=== PATIENT | female | born 1985 | race Caucasian/White ===

== ENCOUNTER 2020-05-10 13:23 | Outpatient (RCR) | payer OTHER, SELFPAY | END 2020-07-16 23:59 | LOC: IMMUN 13:23 | PROVIDERS: PCP Family Medicine; Referring Provider Family Medicine; Visit Provider Family Medicine | DX: Z23 Encounter for immunization (principal) | CPT/HCPCS: 0001A; 0002A; 91300 ==

== ENCOUNTER 2020-09-03 11:24 | Inpatient (IN) | payer OTHER, SELFPAY ==
[2020-09-03 11:25] VITALS: BP 112/86; PULSE 72; RESP 16; TEMP 36.7; O2SAT 99; BMI 25.0
[2020-09-03 11:54] LABS: Mucous, Urine 0 SEEN /hpf (<or=2+)
[2020-09-03 11:55] LABS: Color, Urine Yellow (Yellow); Glucose, Dipstick Normal (Normal); Ketone-Dipstick Negative (Negative); Leukocyte Esterase-Dipstick Negative /ul (Negative); Nitrite-Dipstick Negative (Negative); Occult Blood-Urine 250 /ul (Negative); Protein-Dipstick 30 mg/dl (Negative); Specific Gravity, Urine 1.015 (1.002-1.030); Urine Bilirubin Dipstick Negative (Negative); Urine Clarity Cloudy (Clear); Urine Urobilinogen Normal (Normal); Urine pH 6.5 (5.0 - 8.0)
[2020-09-03 11:56] LABS: Internal QC Validated? YES +Cl - CLEAR BKGD; Pregnancy, Urine Negative Negative
--- NOTE | 2020-09-03 11:57 | US_ITS ---
HISTORY:right pelvic pain. TECHNIQUE: Transvaginal pelvic ultrasound was performed with grayscale, spectral, and color Doppler flow evaluation. # of images incl. paperwork: 54. COMPARISON: None. FINDINGS: UTERUS: 7.6 x 4.6 x 6.3 cm and retroverted. ENDOMETRIUM: 4 mm in thickness. RIGHT OVARY: 3.2 x 2.2 x 1.7 cm. No adnexal masses. Vascular flow present. LEFT OVARY: 2.6 x 1.7 x 2.4 cm. No adnexal masses. Vascular flow present. FREE FLUID: No significant free fluid in the pelvis. US/Transvaginal Non- IMPRESSION: Unremarkable examination of the uterus and ovaries. at 1253 Reported and signed by: Alivia Crisostomo MD Electronically Signed: Alivia Crisostomo MD at 12:51 EDT Tel , Service support ,
--- NOTE | 2020-09-03 11:59 | EX.ED.DYSGE1 ---
HPI History of Present Illness Chief Complaint: Abd Pain Narrative Narrative: 34-year-old female presenting with right pelvic pain. She states this started this morning when she woke up. Its been present for about 5 hours. She denies urinary complaints. She states she is currently on the second day of her menstrual cycle which is on time and normal. Patient states she is on control for acne rosacea and her uses condoms and she believes it is a low likelihood that she would be . Patient has no history of kidney stones. [facility] Medical History Kidney stone Rosacea Home Medications biotin 1 mg PO DAILY 09/03/20 [History Last Taken Unknown] garlic 1 mg PO DAILY 09/03/20 [History Last Taken 09/03/20] hydroxyzine pamoate 25 mg PO QHS PRN 09/03/20 [History Last Taken Unknown] multivitamin 1 tab PO DAILY 09/03/20 [History Last Taken Unknown] norgestimate-ethinyl estradiol 1 tab PO QHS 09/03/20 [History Last Taken 09/02/20] Allergy/AdvReac Type Severity Reaction Status Date / Time No Known Allergies Allergy Verified 09/03/20 11:29 Surgical History H/O adenoidectomy Social History Smoking Status: Never smoker ROS ROS ED Constitutional Constitutional ED: Denies chills or fever(s) Eyes Eyes: Denies blurry vision or diplopia ENT ENT ED: Denies rhinorrhea or sore throat Cardiovascular Cardiovascular: Denies chest pain or palpitations Respiratory/Chest Respiratory/Chest: Denies cough or dyspnea Gastrointestinal Gastrointestinal: Reports abdominal pain, nausea and vomiting Genitourinary Genitourinary ED: Denies dysuria or hematuria Musculoskeletal Musculoskeletal: Denies arthralgias, back pain or myalgias Integumentary Denies abscess or rash Neurologic Neurologic: Denies headache(s) or paresthesias Psychiatric Psychiatric: Denies anxiety or depression EXAM Physical Exam Const Vital Signs: 09/03/20 11:25 09/03/20 13:35 09/03/20 14:37 Temperature 98.0 F 97.3 F L Temperature Source Oral Temporal Pulse Rate 72 52 L 66 Respiratory Rate 16 16 16 Blood Pressure 112/86 H 116/84 H Blood Pressure Mean 94 94 Pulse Ox 99 99 100 Oxygen Delivery Method Room Air Room Air Room Air Positive well nourished General Appearance ED: NAD HEENT Reports moist mucous membranes Negative for trauma Eyes PERRL and EOMs intact bilaterally Resp normal respiratory effort and clear to auscultation bilaterally Cardio regular rate and regular rhythm Back/Spine no CVA tenderness Neuro oriented x3 and CN's II-XII intact bilaterally Sensorium / Orientation: alert Psych mental status grossly normal Skin no rashes or lesions noted and no wounds MDM MDM MDM Narrative Medical decision making narrative: Patient presenting with right lower quadrant/pelvic pain which began abruptly. I did check a urinalysis and hCG which are negative. Patient had transvaginal ultrasound initially which was negative. Patient's urinalysis does show blood in this however she is currently on her menstrual cycle. I did obtain CT of the abdomen pelvis without contrast which shows a 6 mm proximal ureteral stone on the right with hydronephrosis. Patient had been given morphine, Dilaudid, fentanyl and still at 6-7 pain. Patient was discussed with Dr. Winters who accepted admission. Impression: 1. 6 mm proximal right ureteral stone 2. Hematuria 3. Intractable flank pain Lab Data Attestation: I reviewed the patient's lab results. Labs: Laboratory Results - last 24 hr 09/03/20 09/03/20 09/03/20 11:35 11:35 11:50 WBC 7.1 RBC 4.59 Hgb 13.3 Hct 41.0 MCV 89.3 MCH 29.0 MCHC 32.4 RDW Std Deviation 41.8 RDW Coeff of Julee 12.7 Plt Count 239 MPV 10.1 Immature Gran % (Auto) 0.100 Neut % (Auto) 78.0 H Lymph % (Auto) 16.1 L [place] % (Auto) 4.7 Eos % (Auto) 0.7 Baso % (Auto) 0.4 Absolute Neuts (auto) 5.5 Absolute Lymphs (auto) 1.14 Nucleated RBC % 0 Sodium 137 Potassium 4.0 Chloride 105 Carbon Dioxide 25.0 Anion Gap 7 BUN 10 Creatinine 1.05 H Estim Creat Clear Calc 76.16 Est GFR (MDRD) Af Amer 77 Est GFR (MDRD) Non-Af 63 BUN/Creatinine Ratio 9.5 L Glucose 107 H Calcium 9.1 Urine Color Yellow Urine Clarity Cloudy Urine pH 6.5 Ur Specific [place] 1.015 Urine Protein 30 H Urine Glucose (UA) Normal Urine Ketones Negative Urine Occult Blood 250 H Urine Nitrite Negative Urine Bilirubin Negative Urine Urobilinogen Normal Ur Leukocyte Esterase Negative Urine RBC 50-100 SEEN Urine WBC 0-5 SEEN Ur Squamous Epith Cells 0-5 SEEN Urine Bacteria RARE Urine Mucus 0 SEEN Urine Test Negative Radiography Diagnostic Testing: Radiology Impression Transvaginal US 09/03/20 11:57 IMPRESSION: Unremarkable examination of the uterus and ovaries. at 1253 Reported and signed by: Alivia Crisostomo MD Electronically Signed: Alivia Crisostomo MD at 12:51 EDT Tel , Service support , Abdomen/Pelvis CT 09/03/20 12:57 IMPRESSION: Moderate right hydronephrosis secondary to a 6 mm proximal ureteral calculus. Left nephrolithiasis. Colonic diverticulosis without acute diverticulitis. Individualized dose optimization techniques were used for this CT. at 1334 Reported and signed by: Alivia Crisostomo MD Electronically Signed: Alivia Crisostomo MD at 13:33 EDT Tel , Service support , Discharge Plan Disposition Disposition: Acute Care Hospital [facility] Discharge Date/Time: 09/03/20 14:40
[2020-09-03 12:01] LABS: Red Blood Cells-Urine 50-100 SEEN /hpf (0-5)
[2020-09-03 12:03] LABS: Bacteria RARE /hpf (None Seen); Squamous Epithelial Cells - UA 0-5 SEEN /hpf (5-10); White Blood Cells 0-5 SEEN /hpf (0-5)
[2020-09-03] MEDS: 0.9% Normal Saline 1,000 ML 1000 ML IV (12:08)
[2020-09-03] MEDS: Morphine 4 MG/ML Syringe IV (12:09)
[2020-09-03] MEDS: Ondansetron 4 MG/2 ML Vial IV (12:09)
[2020-09-03 12:13] LABS: Absolute Lymphocyte Count 1.14 X10^3/uL (0.83-4.51); Absolute Neutrophil Count 5.5 X10^3/uL (2.0-7.7); Basophil# 0.03 X10^3/uL; Basophil% 0.4 % (0-1); Eosinophil# 0.05 X10^3/uL; Eosinophils% 0.7 % (0-5); Hemoglobin 13.3 g/dL (12.0-15.0); Lymphocyte # 1.14 X10^3/ul (0.83-4.51); Lymphocyte % 16.1 % (19-41); Mean Corp Hgb Conc 32.4 g/dL (32-36); Mean Corpuscular Volume 89.3 fL (81-99); Mean Platelet Vol. 10.1 fl (6.2-12.0); Monocyte# 0.33 X10^3/uL; Monocyte% 4.7 % (0-10); NRBC Flagged by Analyzer 0 % (0-5); Neutrophil # 5.52 X10^3/uL (2.7-7.7); Platelet Count 239 K/mm3 (150-450); RBC Distribution Width CV 12.7 % (11.6-14.6); RBC Distribution Width SD 41.8 fl (35.1-43.9); Red Blood Count 4.59 M/mm3 (4.2-5.4); White Blood Count 7.1 K/mm3 (4.4-11.0)
[2020-09-03 12:23] LABS: Anion Gap 7 (5-15); BUN 10 mg/dL (7-18); BUN/Creat Ratio 9.5 RATIO (10-20); Calcium,Total 9.1 mg/dL (8.5-10.1); Chloride 105 mmol/L (98-107); Creatinine, Serum 1.05 mg/dL (0.55-1.02); EST Glomerular Filtration Rate 63 mL/min (>60); Est Glom Filt Rate - Afr Amer 77 mL/min (>60); Estimated Creatinine Clearance 76.16 ml/min; Glucose 107 mg/dL (74-106); Sodium Level 137 mmol/L (136-145)
--- NOTE | 2020-09-03 12:57 | CT_ITS ---
HISTORY: Right flank pain. TECHNIQUE: Helically acquired images were obtained of the abdomen and pelvis without oral or IV contrast as per renal stone protocol. A radiation dose optimization technique was used for this scan. # of images incl. paperwork: 460. COMPARISON: None. FINDINGS: LUNG BASES: Calcified right lower lobe granuloma. BOWEL: Bowel including appendix nondilated. Colonic diverticulosis without focal pericolonic inflammatory change observed. PERITONEUM: No significant ascites. LIVER/BILIARY TRACT: Unremarkable liver.Gallbladder present. SPLEEN: Non-enlarged. PANCREAS: No peripancreatic inflammation. KIDNEYS AND URETERS: Moderate right hydronephrosis and mild perinephric stranding secondary to a 6 mm proximal ureteral calculus. 2 mm left lower pole calculi without hydronephrosis. ADRENAL GLANDS: Non-enlarged. VESSELS: No abdominal aortic aneurysm. PELVIC ORGANS: Retroverted uterus. BONES: Intact. CT/Abdomen/Pelvis without Cont IMPRESSION: Moderate right hydronephrosis secondary to a 6 mm proximal ureteral calculus. Left nephrolithiasis. Colonic diverticulosis without acute diverticulitis. Individualized dose optimization techniques were used for this CT. at 1334 Reported and signed by: Alivia Crisostomo MD Electronically Signed: Alivia Crisostomo MD at 13:33 EDT Tel , Service support ,
[2020-09-03] MEDS: HYDROmorphone 0.5 MG/0.5 ML SYRINGE IV (13:06)
[2020-09-03 13:35] VITALS: PULSE 52; RESP 16; O2SAT 99
[2020-09-03] MEDS: fentaNYL 100 MCG/2 ML Ampul 50 MCG IV (14:22)
[2020-09-03 14:37] VITALS: BP 116/84; PULSE 66; RESP 16; TEMP 36.3; O2SAT 100
--- NOTE | 2020-09-03 14:45 | HP.PCM_ITS ---
HPI - General General Date of Admission: 09/03/20 HPI Narrative YOSHI MIRANDA, is a 34 F who presents to ER with abdominal pain, CT scan done demonstrates a 6mm stone int he right UPJ causing obstruction and hydronephrosis admit for pain control, plan to take to surgery for ureteroscopy laser stone and right stent in am. PFSH Home Medications biotin 1 mg PO DAILY 09/03/20 [History Last Taken Unknown] garlic 1 mg PO DAILY 09/03/20 [History Last Taken 09/03/20] hydroxyzine pamoate 25 mg PO QHS PRN 09/03/20 [History Last Taken Unknown] multivitamin 1 tab PO DAILY 09/03/20 [History Last Taken Unknown] norgestimate-ethinyl estradiol 1 tab PO QHS 09/03/20 [History Last Taken 09/02/20] Allergy/AdvReac Type Severity Reaction Status Date / Time No Known Allergies Allergy Verified 09/03/20 11:29 Social History Smoking Status: Never smoker ROS Constitutional Constitutional: Denies chills, fever(s) or malaise Eyes Eyes: Denies blurry vision or change in vision ENT HEENT: Reports none Cardiovascular Cardiovascular: Denies chest pain or palpitations Respiratory/Chest Respiratory/Chest: Denies cough or shortness of breath with exertion Gastrointestinal Gastrointestinal: Denies abdominal pain, constipation or diarrhea Genitourinary Genitourinary: Reports systems reviewed and no addt'l complaints, except as documented Musculoskeletal Musculoskeletal: Denies back pain, joint stiffness or joint swelling Integumentary Integumentary: Denies dry skin, jaundice, lesions or rash Neurologic Neurologic: Denies confusion, syncope or weakness Psychiatric Psychiatric: Reports none; Denies anxiety or depression Endocrine Endocrinology: Denies excessive sweating, fatigue or flushing Hematologic/Lymphatic Hematologic/Lymphatic: Denies anemia, easy bleeding or easy bruising Vital Signs Vital Signs Vital Signs: 09/03/20 11:25 09/03/20 13:35 09/03/20 14:37 Temperature 98.0 F 97.3 F L Temperature Source Oral Temporal Pulse Rate 72 52 L 66 Respiratory Rate 16 16 16 Blood Pressure 112/86 H 116/84 H Blood Pressure Mean 94 94 Pulse Ox 99 99 100 Oxygen Delivery Method Room Air Room Air Room Air Weight Weight: 74.843 kg Body Mass Index (BMI) 25.0 Physical Exam Const alert and oriented x3 General Appearance: cooperative HEENT normocephalic, head/scalp atraumatic, EAC's normal and TM's normal bilaterally Eyes PERRL and EOMs intact bilaterally Pupil: sluggish Neck no lymphadenopathy, supple and no JVD General: trachea midline Lymph Lymphatic: no lymphadenopathy noted, lymphedema and lymphadenopathy Resp normal respiratory effort, normal air movement and clear to auscultation bilaterally Cardio regular rate, regular rhythm and peripheral pulses 2+ throughout GI soft to palpation, non-tender and non-distended Extremity normal capillary refill and no clubbing, cyanosis or edema General Extremity: no tenderness to palpation of joints or extremities Skin no rashes or lesions noted General Skin Exam: turgor normal Lesions: no lesions Rashes: no rashes Neuro CN's II-XII intact bilaterally Speech: speech normal Motor Exam: strength 5/5 throughout; Negative for general weakness Psych thought process normal, cooperative and affect normal Appearance: appropriate Results Lab / Micro Data Result Diagrams: 09/03/20 11:35 09/03/20 11:35 Labs: Laboratory Results - last 24 hr 09/03/20 11:35: WBC 7.1, RBC 4.59, Hgb 13.3, Hct 41.0, MCV 89.3, MCH 29.0, MCHC 32.4, RDW Std Deviation 41.8, RDW Coeff of Julee 12.7, Plt Count 239, MPV 10.1, Immature Gran % (Auto) 0.100, Neut % (Auto) 78.0 H, Lymph % (Auto) 16.1 L, [place] % (Auto) 4.7, Eos % (Auto) 0.7, Baso % (Auto) 0.4, Absolute Neuts (auto) 5.5, Absolute Lymphs (auto) 1.14, Nucleated RBC % 0 09/03/20 11:35: Sodium 137, Potassium 4.0, Chloride 105, Carbon Dioxide 25.0, Anion Gap 7, BUN 10, Creatinine 1.05 H, Estim Creat Clear Calc 76.16, Est GFR (MDRD) Af Amer 77, Est GFR (MDRD) Non-Af 63, BUN/Creatinine Ratio 9.5 L, Glucose 107 H, Calcium 9.1 09/03/20 11:50: Urine Color Yellow, Urine Clarity Cloudy, Urine pH 6.5, Ur Sp ecific [place] 1.015, Urine Protein 30 H, Urine Glucose (UA) Normal, Urine Ke tones Negative, Urine Occult Blood 250 H, Urine Nitrite Negative, Urine Bilir ubin Negative, Urine Urobilinogen Normal, Ur Leukocyte Esterase Negative, Urine RBC 50-100 SEEN, Urine WBC 0-5 SEEN, Ur Squamous Epith Cells 0-5 SEEN, Urine Bacteria RARE, Urine Mucus 0 SEEN, Urine Test Negative Radiology Impression Transvaginal US 09/03/20 11:57 IMPRESSION: Unremarkable examination of the uterus and ovaries. at 1253 Reported and signed by: Alivia Crisostomo MD Electronically Signed: Alivia Crisostomo MD at 12:51 EDT Tel , Service support , Abdomen/Pelvis CT 09/03/20 12:57 IMPRESSION: Moderate right hydronephrosis secondary to a 6 mm proximal ureteral calculus. Left nephrolithiasis. Colonic diverticulosis without acute diverticulitis. Individualized dose optimization techniques were used for this CT. at 1334 Reported and signed by: Alivia Crisostomo MD Electronically Signed: Alivia Crisostomo MD at 13:33 EDT Tel , Service support , Assessment & Plan Assessment/Plan (1) Right ureteral calculus: PLAN: NPO at midnight, plan for Surgery tomorrow for right ureteroscopy laser stone and stent.
[2020-09-03 14:48] VITALS: BP 121/78; PULSE 79; RESP 18; TEMP 36.9; O2SAT 100
[2020-09-03 14:52] VITALS: BMI 26.4
[2020-09-03] MEDS: HYDROcodone Bitartrate/Apap 5/325 Tablet PO ×2 (15:10→21:27)
[2020-09-03] MEDS: 0.9% Normal Saline 1,000 ML 125 ML IV ×2 (15:15→21:29)
[2020-09-03] MEDS: 0.9% Saline Lock 10 ML Syringe IV ×2 (15:15→16:58)
[2020-09-03 15:23] VITALS: BMI 26.4
[2020-09-03] MEDS: Ciprofloxacin 400 MG/200 ML BAG 200 MG IV (15:44)
[2020-09-03] MEDS: Ketorolac 15 MG/ML Vial IV (16:58)
[2020-09-03 20:57] VITALS: BP 106/74; PULSE 81; RESP 18; TEMP 36.9; O2SAT 100
[2020-09-03] MEDS: Docusate Sodium 100 MG Capsule 200 MG PO (21:27)
[2020-09-04] VITALS (9 sets, daily range): BP systolic 102–115; BP diastolic 59–75; PULSE 63–90; RESP 14–18; TEMP 36.5–37.3; O2SAT 94–100; BMI 26.4
[2020-09-04] MEDS: Ketorolac 15 MG/ML Vial IV ×2 (02:40→08:42)
[2020-09-04] MEDS: 0.9% Saline Lock 10 ML Syringe IV ×3 (02:40→12:36)
[2020-09-04] MEDS: Ciprofloxacin 400 MG/200 ML BAG 200 MG IV (02:58)
[2020-09-04] MEDS: 0.9% Normal Saline 1,000 ML 125 ML IV ×2 (05:28→10:15)
--- NOTE | 2020-09-04 07:14 | PCM.PN.GU ---
Subjective Subjective Admitted for kidney stone Objective Data Objective Data Vital Signs: Vital Signs Temp Pulse Resp BP Pulse Ox 98.3 F 70 18 104/59 L 100 09/04/20 02:42 09/04/20 02:42 09/04/20 02:42 09/04/20 02:42 09/04/20 02:42 Oxygen Delivery Method Room Air Weight: 78.744 kg Body Mass Index (BMI) 26.4 Intake & Output: Intake and Output for Last 24 Hours 09/02/20 09/03/20 09/04/20 23:59 23:59 23:59 Intake Total 2254.17 / 2254.17 1197.92 / 1197.92 Output Total 300 / 300 Balance 2254.17 / 2254.17 897.92 / 897.92 Lab / Micro Data Result Diagrams: 09/03/20 11:35 09/03/20 11:35 Labs: Laboratory Results - last 24 hr 09/03/20 11:35: WBC 7.1, RBC 4.59, Hgb 13.3, Hct 41.0, MCV 89.3, MCH 29.0, MCHC 32.4, RDW Std Deviation 41.8, RDW Coeff of Julee 12.7, Plt Count 239, MPV 10.1, Immature Gran % (Auto) 0.100, Neut % (Auto) 78.0 H, Lymph % (Auto) 16.1 L, [place] % (Auto) 4.7, Eos % (Auto) 0.7, Baso % (Auto) 0.4, Absolute Neuts (auto) 5.5, Absolute Lymphs (auto) 1.14, Nucleated RBC % 0 09/03/20 11:35: Sodium 137, Potassium 4.0, Chloride 105, Carbon Dioxide 25.0, Anion Gap 7, BUN 10, Creatinine 1.05 H, Estim Creat Clear Calc 76.16, Est GFR (MDRD) Af Amer 77, Est GFR (MDRD) Non-Af 63, BUN/Creatinine Ratio 9.5 L, Glucose 107 H, Calcium 9.1 09/03/20 11:50: Urine Color Yellow, Urine Clarity Cloudy, Urine pH 6.5, Ur Specific [place] 1.015, Urine Protein 30 H, Urine Glucose (UA) Normal, Urine Ketones Negative, Urine Occult Blood 250 H, Urine Nitrite Negative, Urine Bilirubin Negative, Urine Urobilinogen Normal, Ur Leukocyte Esterase Negative, Urine RBC 50-100 SEEN, Urine WBC 0-5 SEEN, Ur Squamous Epith Cells 0-5 SEEN, Urine Bacteria RARE, Urine Mucus 0 SEEN, Urine Test Negative Radiography Diagnostic Testing: Radiology Impression Transvaginal US 09/03/20 11:57 IMPRESSION: Unremarkable examination of the uterus and ovaries. at 1253 Reported and signed by: Alivia Crisostomo MD Electronically Signed: Alivia Crisostomo MD at 12:51 EDT Tel , Service support , Abdomen/Pelvis CT 09/03/20 12:57 IMPRESSION: Moderate right hydronephrosis secondary to a 6 mm proximal ureteral calculus. Left nephrolithiasis. Colonic diverticulosis without acute diverticulitis. Individualized dose optimization techniques were used for this CT. at 1334 Reported and signed by: Alivia Crisostomo MD Electronically Signed: Alivia Crisostomo MD at 13:33 EDT Tel , Service support , Physical Exam Const alert and oriented x3 General Appearance: cooperative HEENT normocephalic, head/scalp atraumatic, EAC's normal and TM's normal bilaterally Eyes PERRL and EOMs intact bilaterally Pupil: sluggish Neck no lymphadenopathy, supple and no JVD General: trachea midline Lymph Lymphatic: no lymphadenopathy noted, lymphedema and lymphadenopathy Resp normal respiratory effort, normal air movement and clear to auscultation bilaterally Cardio regular rate, regular rhythm and peripheral pulses 2+ throughout GI soft to palpation, non-tender and non-distended Extremity normal capillary refill and no clubbing, cyanosis or edema General Extremity: no tenderness to palpation of joints or extremities Skin no rashes or lesions noted General Skin Exam: turgor normal Lesions: no lesions Rashes: no rashes Neuro CN's II-XII intact bilaterally Speech: speech normal Motor Exam: strength 5/5 throughout; Negative for general weakness Psych thought process normal, cooperative and affect normal Appearance: appropriate Assessment & Plan Assessment/Plan (1) Right ureteral calculus: PLAN: Plan to proceed with ureteroscopy laser of stone and stent placement today.
--- NOTE | 2020-09-04 09:23 | NURSING ---
0910-PT OFF UNIT VIA BED FOR SCHEDULED SURGERY
--- NOTE | 2020-09-04 10:06 | DCINST_ITS ---
Discharge Instructions Diet Discharge Diet: No restrictions Activity Discharge Activity: Return to Normal Activity and May Not Drive (while taking narcotic pain medications.) Dressing / Incision Call your doctor if you observe: Fever of 101 or Higher Follow Up Care Please Follow Up With: Vance Winters MD When: Call [phone] for an appointment Test Results: Test results from this visit will be discussed in further detail at your follow-up appointment, if applicable. Discharge Plan Admission Admit Date/Time: 09/03/20 14:45 Primary Reason for Your Visit: laser stone Attending Provider: Vance Winters Primary Care Provider: Bell Bundy NP Discharge Orders/Prescriptions Prescriptions: New ciprofloxacin HCl [Cipro] 500 mg tablet 500 mg PO BID Qty: 6 RF: 0 oxycodone-acetaminophen 5-325 mg tablet 1 tab PO Q6H PRN (Reason: pain) 7 Days Qty: 14 RF: 0 Continued multivitamin Tablet 1 tab PO DAILY RF: 0 garlic 1 mg Capsule 1 mg PO DAILY RF: 0 norgestimate-ethinyl estradiol 0.18/0.215/0.25 mg-35 mcg (28) tablet 1 tab PO QHS RF: 0 hydroxyzine pamoate 25 mg capsule 25 mg PO QHS PRN (Reason: Sleep) RF: 0 biotin 1 mg Capsule 1 mg PO DAILY RF: 0 Referrals / Follow Up: Vance Winters MD [STAFF PHYSICIAN] - Bell Bundy NP, GENERAL MAINTENANCE HELPER-C [Primary Care Provider] - Disposition Discharge Orders: Discharge Patient (Routine); Ordered 09/04/20 Ordered By: Dr. Vance Winters
--- NOTE | 2020-09-04 10:47 | PCM.OPRPT ---
Report of Operation Date of Procedure: 09/04/20 Pre-Operative Diagnosis: Right proximal ureteral calculi with obstruction Post-Operative Diagnosis: Same Surgery/Procedure Performed:: Cystoscopy, balloon dilation of the right ureter, right ureteroscopy laser lithotripsy of stone and right stent placement Description of Surgical Findings:: This is a patient who presents to the hospital for treatment for an obstructing distal ureter calculi. I discussed with the patient how the surgery would be performed and we reviewed the risks and benefits of the surgery. The risk and benefits include the risk of failure to remove the stone completely and that the patient may need multiple procedures. We discussed the risk of an infection, the risk of bleeding. We discussed the very rare risk of serious complicated injury to the ureter. The patient understands that if the stone is not able to be removed safely that we may abort the procedure and place a stent. After full discussion and all questions address with the patient the consent form was signed the side was marked appropriately and the patient was taken back to the operating room for the procedure. The patient was taken back to the operating room. After induction of anesthesia by the anesthesiology team the patient was placed in dorsolithotomy position. The genitals were prepped and draped in usual sterile fashion. I went into the bladder with a 21 Danish rigid cystourethroscope through the urethra. Upon entering the bladder I inspected the trigone the left and right ureteral orifice and the bladder itself. I then cannulated the Right ureteral orifice and advanced a 0.038 Glidewire up into the kidney. Then a ureteral balloon dilator was advanced over the wire and the distal ureter was balloon dilated with a 12 Fr x 5cm balloon dilator. After 3 minutes of dilating the ureter the balloon was backloaded off the 0.038 glidewire then the safety wire was left in place. I then placed a second 0.038 Guidewire as a working wire and over the working 0.038 guidewire I went in with a Flexible 7.9fr ureteroscope. I was able to go inside with the 7.9Fr flexible utereroscope and I pulled out the working guidewire and then through the 7.9 fr flexible ureteroscope I ascended up the ureter with direct visualization until the stone was located, then I engaged the stone with laser lithotripsy using a 270miron laser fiber with energy setting of 6 Hertz and 0.6 J until the stone was lasered into tiny little pieces that should pass on their own. After successful laser lithotripsy of the stone and stone fragements, a retrograde pyelogram was performed with 10cc of contrast and no extravasation of contrast or perforation was identified in the ureter. I then backed out of the ureter left the wire in place and then over the 0.038 guidewire I placed a double coiled pigtail ureteral stent. The ureteral stent was advanced over the 0.038 guidewire under direct fluoroscopic guidance and direct cystoscopic visual guidance, once the stent was in good position I pulled the wire and the stent coiled in the kidney and bladder in good position. I then drained the patient's bladder and the cystoscope was removed and the patient was taken back to the recovery room in good position. The patient was given discharge instructions to call the office for instructions on when to come to the office to have the stent removed. Surgeon: binh Type of Anesthesia: General Drains: stent right Admit VTE Documentation VTE Present on Admission: No VTE Mechan Device Prophylaxis: SCD's
[2020-09-04] MEDS: Morphine 2 MG/ML Syringe IV (12:36)
--- NOTE | 2020-09-04 13:15 | CASEMGMT ---
LACY WETZEL Assessment: Face to Face with pt for initial transition planning/care coordination assessment. RN CM introduced self and role at [facility], pt voices understanding and consents to assessment. Pt is A/O x4 and answers all questions appropriately at this time. Pt sitting up in bed eating lunch in no distress. Care providers, pharmacy, and demographics verified/updated. 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 LNOK: Kahlil Rivas, ; Kelton Bill, father Living Arrangements: Pt lives with and two children in a two story house with a couple of steps to enter. Pt is I in ADL's and denies concerns at home. Transportation: Pt drives self and denies concerns with transportation. DME/HHC: Pt denies having any DME or history of HHC. 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 Pt states no concerns with going home at time of dc. Pt states no further concerns/needs. CM to follow. Advised pt to ask CM if any further question/concerns/needs arise, voices understanding. Pt Goal: Home Plan: Home with family support
[2020-09-04] MEDS: HYDROcodone Bitartrate/Apap 5/325 Tablet PO (15:00)
== END 2020-09-04 15:35 | disposition home or self-care (01) | DRG 661 ==
LOC: ED 12:19 → MS3 14:46
PROVIDERS: Admitting Provider Urology; Emergency Provider Student in an Organized Health Care Education/Training Program; PCP Nurse Practitioner Family; Visit Provider Urology
PROC: (CPT 52353; principal; 2020-09-04 14:30)
DX: N13.2 Hydronephrosis with renal and ureteral calculous obstruction (principal); L71.9 Rosacea, unspecified; Z79.3 Long term (current) use of hormonal contraceptives; Z79.899 Other long term (current) drug therapy
CPT/HCPCS: 74176; 76830; 80048; 81001; 81025; 85025; 93976; 99284; J7030; A4216; C1769; C2617; J0744; J2405